=== PATIENT | male | born 1930 | race Caucasian/White ===

== ENCOUNTER 2016-02-25 23:29 | Emergency (ER) | payer MEDICARE ==
[~2016-02-25] VITALS: Ht 180.3 cm; Wt 90.9 kg
[~2016-02-25 23:29] MED LIST: ALBU0.423 IH; ALBU18HF INH; ALPRAZOLAM0.5 MG PO; CLOP75TA3 PO; METO50TA PO; MULT-64 PO; NAPR220C11 PO; NITR0.4T SL; OMEP40CA25 PO; SIMV40TA5 PO; SMV40T PO; ZES20T PO; [UNRECOGNIZED DRUG - CODE] PO
[2016-02-25 23:48] VITALS: BP 160/76; RESP 22; O2SAT 95
--- NOTE | 2016-02-25 23:48 | ED.REPORT ---
HPI-General Illness Date of Service Feb 25, 2016 ED Provider: Dr. Kirk Pt is an 86 year old male with a hx of HTN, GERD, CAD and cardiac stents presenting to the ED complaining of a mass on his left cheek just anterior to his ear onset 2 months ago. Denies fever or SOB. The pt has masses on his face which are followed by an ENT specialist and he had a needle biopsy on . The mass has since doubled in size. Nursing Notes Stated Complaint: PAINFUL LUMP ON L SIDE OF FACE Chief Complaint: ENT & Mouth Nursing Notes Reviewed: Yes Allergies: Coded Allergies: No Known Drug Allergies (Verified Allergy, Unknown, 02/25/16) Scheduled Cilostazol-Expunged Drug, Do Not Renew! (Pletal-Expunged Drug, Do Not Renew!) 100 Mg Tablet 50 MG PO BID Clopidogrel Bisulfate (Plavix) 75 Mg Tablet 75 MG PO DAILY Lisinopril-Expunged Drug, Do Not Renew! (Lisinopril-Expunged Drug, Do Not Renew! ) 20 Mg Tablet 20 MG PO DAILY for blood pressure Metoprolol Tart-Expunged Drug, Do Not Renew! (Metoprolol Tart-Expunged Drug, Do Not Renew!) 50 Mg Tablet 50 MG PO BID for heart rate and blood pressure Multivitamins-Expunged Drug, Do Not Renew! (Multivitamins-Expunged Drug, Do Not Renew!) 1 Each Tab.chew 1 EACH PO DAILY for electrolyte balance Naproxen Sodium (Aleve) 220 Mg Capsule 440 MG PO DAILY Omeprazole-Expunged Drug, Do Not Renew! (Omeprazole-Expunged Drug, Do Not Renew! ) 40 Mg Capsule.dr 20 MG PO BID for gastric reflux and indigestion Simvastatin (Simvastatin) 40 Mg Tablet 40 MG PO HS Simvastatin-Expunged Drug, Choose New Med! (Simvastatin-Expunged Drug, Choose New Med!) 40 Mg Tablet 40 MG PO DAILY for cholesterol Scheduled PRN Albuterol Sulfate (Ventolin HFA Inhaler) 200 Puff/18 Gm Inhaler 1 PUFF INH Q4 PRN PRN For Wheezing Alprazolam-Expunged Drug, Do Not Renew! (Alprazolam-Expunged Drug, Do Not Renew! ) 0.5 Mg Tablet 0.5 MG PO HS PRN PRN for insomnia Nitroglycerin-Expunged Drug, Do Not Renew! (Nitroglycerin SL-Expunged Drug, Do Not Renew!) 0.4 Mg Tab.subl 0.4 MG SL PRN PRN PRN for chest pain. Take 1 tab under tongue every 5 minutes times 3 doses for chest pain. Miscellaneous Medications Albuterol-Expunged Drug, Do Not Renew! (Albuterol-Expunged Drug, Do Not Renew!) 1.25 Mg/3 Ml Nebu 1.25 MG IH General Time Seen by MD: 23:48 Chief Complaint Other (Mass left side of face) Hx Obtained From: Patient Arrived By: Walk-in Sudden in Onset?: No Onset Occurred: More than a week ago... (2 months) Symptom Duration: Since onset Location: : Face Quality: Painful Severity: Current: Moderate Severity: Maximum: Moderate Recent Healthcare: No recent hospitalization, Recent doctor visit Similar Sx Previous: Yes Past Medical History Past Medical History Masses on face followed by ENT CAD, stents, peripheral vascular disease, chronic anemia, HTN, GERD, dyslipidemia, Cerebrovascular disease with known carotid stenosis Past Surgical History Needle biopsy of facial mass right iliac angioplasty Ambulatory Status Independent Review of Systems Full Review of Systems Constitutional: Denies: Fever Respiratory: Denies: Shortness of breath Skin: Reports Swelling Complete sys rev & neg: except as marked. Physical Exam Vital Signs Vital Signs Date Time Temp Pulse Resp B/P Pulse Ox O2 Delivery O2 Flow Rate FiO2 02/25/16 23:48 36.6 95 22 160/76 95 Room Air Initial VS: Reviewed General/Constitutional: Well-developed, Well-nourished Head / Eyes: Atraumatic, Normocephalic, PERRL ENT: Mucous membranes moist, Conjunctiva normal, No scleral icterus Cardiovascular: Regular rate & rhythm, Heart sounds normal, Intact distal pulses Abdomen / GI: Soft, Non-tender, No guarding, No rebound, No distention Extremities: Vascular intact, Neuro intact, No swelling, No tenderness Neurologic: Alert, Oriented, Nonfocal Psychiatric: Mood/affect normal, Behavior normal, Normal thought content Respiratory / Chest: No respiratory distress Wheeze right lung Skin: Warm, Dry, Intact 3 in x 3 in lump anterior to left ear Interpretation & Diagnostics Lab Results Interpretation Result Diagram: 02/26/16 0040 02/26/16 0040 Test 02/26/16 00:40 White Blood Count 8.7th/mm3 (3.8-10.1) Red Blood Count 4.79mil/mm3 (4.40-5.80) Hemoglobin 14.8g/dL (13.8-17.2) Hematocrit 45.3% (41.0-50.0) Mean Corpuscular Volume 94.6fL (81-100) Mean Corpuscular Hemoglobin 30.9pg (27.0-35.0) Mean Corpuscular Hemoglobin Concent 32.7% (32.0-37.0) Red Cell Distribution Width 14.6% (12.3-15.4) Platelet Count 160bil/L (150-400) Neutrophils (%) (Auto) 71.5% (40-74) Lymphocytes (%) (Auto) 14.8% (14-46) Monocytes (%) (Auto) 10.7% (4-12) Eosinophils (%) (Auto) 2.1% (0-5) Basophils (%) (Auto) 0.7% (0-3) Sodium Level 139mEq/L (134-144) Potassium Level 4.4mEq/L (3.5-5.2) Chloride Level 102mEq/L (97-108) Carbon Dioxide Level 24mmol/L (18-29) Blood Urea Nitrogen 17mg/dL (8-27) Creatinine 1.24mg/dL (0.76-1.27) Estimat Glomerular Filtration Rate 59mL/min (>59) Glucose Level 103mg/dL (60-99) Calcium Level 9.1mg/dL (8.5-10.1) Total Bilirubin 0.3mg/dL (0.0-1.2) Aspartate Amino Transf (AST/SGOT) 23U/L (0-50) Alanine Aminotransferase (ALT/SGPT) 12U/L (0-44) Alkaline Phosphatase 92U/L (25-160) Total Protein 7.2g/dL (6.4-8.4) Albumin 3.8g/dL (3.4-5.0) Amylase Level 42U/L (28-100) Hold [place] Top Tube Received (Received) Procedures Incision & Drainage Abscess Time: 00:53 Procedure Performed by: ED physician Consent / Setup / Site Prep: Consent from patient, Time-out performed, Hand hygiene observed, Stand sterile technique, Standard surgical scrub, Sterile drapes applied Location of Abscess: Left cheek anterior to left ear Post-Procedure / Complications: Culture obtained, Dressing applied, No complications, Condition improved, Tolerated procedure well, Patient stable Re-Eval/Medical Decision Med Decision/Clinical Course Very pleasant 86-year-old male presents with increased swelling of the left mandibular mass. The mass is been there for several months was recently biopsied at ENT clinic by Dr. mancini. Since that roughly doubled in size. On examination the mass is roughly 3" x 3" long the angle of his left mandible. There is no stridor trismus or drooling. There is no fluctuance. The mass does not seem tense and rather fixed/adherent to the bone. Mild erythema overlying the area. No oral pharyngeal involvement that I can see. Laboratory work was all reassuring. I consulted with Dr. Urban. He recommended steroids antibiotics and stent and needle aspirate. I performed a needle aspirate carefully. I avoided the area of erythema. Nothing was drained. Nothing we could culture. Mr. Petersen was medicating felt better. At discharge the pain was well-controlled. The mass is not growing in size. No signs of airway compromise. He will be discharged home. He is requesting something for pain. I will discharge him home with a Percocet take home pack as well as a prescription for clindamycin. Routine opiate warnings were given. I did warn them that the Percocet can lead to hypoventilation. I mention this because he has COPD. He states that the pain is so great that he is breathing fast anyways. He will be very careful to the Percocet and his will be there with him. They both would prefer him to have pain medication as opposed to suffer due to the degree of pain. Close follow-up recommended. Time of Eval: 00:20 Patient Status: Condition improved Re-Evaluation/Progress Note: Discussed consultation with Dr. Urban. Time of Eval: 00:53 Patient Status: Condition improved Re-Evaluation/Progress Note: Performed I&D and obtained sample. Consultation : Referral / Consult Name: Bala Urban MD Consulted With: ENT Call Returned at: 00:14 Note: Put the pt on antibiotics and IV steroids. Put a needle in the mass and see if it drains. Culture the discharge. Counseled Regarding: Diagnosis, Lab results, Need for follow-up, When/why to return to ED Discharge & Departure Primary Impression: Swelling, mass, or lump on face Disposition: Home Discharge Condition All VS Reviewed: Yes Condition: Improved Patient Instructions: Cellulitis (ED) Additional Instructions: I consulted with Dr. Bala Urban from ear nose and throat surgery. The recommendations are for oral antibiotics, pain medication and close follow-up. If the site of the biopsy continues to grow in size and feel free to come back emergent department. Otherwise follow-up with Dr. Mancini on Saturday. Call the office Saturday morning and tell them that the area that was biopsied has grown in size. Clindamycin 4 times daily. 1-2 Percocet every 6 hours as needed for pain. Do not drive or drink alcohol or consume acetaminophen while taking the Percocet. Return if any problems or any worsening symptoms. Referrals: Manny Crandall MD (PCP) Semaj Mancini MD Attestation Portions of this note were transcribed by Kaye Peraza. I, Dr. Kirk personally performed the history, physical exam and medical decision-making; I reviewed and confirmed the accuracy of the information in the transcribed note. Signed by : Karen Antunez, 02/25/2016 and 0130. copies to: Manny Crandall MD, Todd P DO Feb 25, 2016 23:48 KAYE PERAZA Feb 26, 2016 00:11
[2016-02-26] MEDS ORDERED: Albuterol-Ipratropium 3 mL Inhalation Solution NEB ONE (00:10)
[2016-02-26] MEDS ORDERED: Clindamycin Inj 900 MG in IV Premix 1 EACH IV ONE (00:20)
[2016-02-26] MEDS ORDERED: Dexamethasone 10 mg/mL Inj IVPUSH ONE (00:20)
[2016-02-26] MEDS ORDERED: Lidocaine 1%-Epi 1:100,000 50 mL Inj SUBQ ONE (00:20)
[2016-02-26] MEDS ORDERED: Lidocaine 1%-Epi 1:100,000 20 mL Inj ONE (00:36)
[2016-02-26 00:53] LABS: BASOPHILS % (AUTO) 0.7 % (0-3); EOSINOPHILS % (AUTO) 2.1 % (0-5); MONOCYTES % (AUTO) 10.7 % (4-12); Mean Corpuscular Hemoglobin 30.9 pg (27.0-35.0); Mean Corpuscular Volume 94.6 fL (81-100); NEUTROPHILS % (AUTO) 71.5 % (40-74); Platelet Count 160 bil/L (150-400)
[2016-02-26] MEDS ORDERED: _oxyCODONE/APAP 5-325 mg Tablet PO PRN (01:20)
[2016-02-26 02:17] VITALS: BP 165/90; PULSE 91; RESP 16; O2SAT 96
[2016-04-26] MEDS ORDERED: PANT40TA3 PO (14:53)
[2016-04-26] MEDS ORDERED: BISO10TA PO (14:53)
[2016-04-26] MEDS ORDERED: ALBU18HF INH (14:53)
[2016-04-26] MEDS ORDERED: NITR0.4T6 SL (14:53)
[2016-04-26] MEDS ORDERED: POTA10TA12 PO (14:53)
[2016-04-26] MEDS ORDERED: ISOS60TA2 PO (14:53)
[2016-04-26] MEDS ORDERED: CILO100T2 PO (14:53)
[2016-04-26] MEDS ORDERED: LOSA50TA37 PO (14:53)
[2016-04-26] MEDS ORDERED: ALPR0.5T8 PO (14:53)
[2016-04-26] MEDS ORDERED: FURO40TA4 PO (14:53)
[2016-04-26] MEDS ORDERED: IRON150C6 PO (14:53)
[2016-04-26] MEDS ORDERED: MULT-1073 PO (14:53)
[2016-04-26] MEDS ORDERED: LIP40 PO (14:53)
[2016-04-26] MEDS ORDERED: GLUC-210 PO (14:53)
== END 2016-02-26 01:58 | disposition home or self-care (01) ==
LOC: SED 23:29
DX: R22.0 Localized swelling, mass and lump, head (principal); I10 Essential (primary) hypertension; K21.9 Gastro-esophageal reflux disease without esophagitis; I25.10 Atherosclerotic heart disease of native coronary artery without angina pectoris; E78.5 Hyperlipidemia, unspecified; I73.9 Peripheral vascular disease, unspecified; Z95.818 Presence of other cardiac implants and grafts; Z79.02 Long term (current) use of antithrombotics/antiplatelets
CPT/HCPCS: 10060; 36415; 80053; 82150; 85025; 96365; 96372; 96375; 99285; J1100

== ENCOUNTER 2016-07-06 01:36 | Inpatient (IN) | payer MEDICARE ==
[2016-07-06] VITALS (16 sets, daily range): BP systolic 123–171; BP diastolic 62–79; PULSE 72–111; RESP 20–29; O2SAT 91–97
[~2016-07-06] VITALS: Ht 180.3 cm; Wt 92.6 kg
[~2016-07-06 01:36] MED LIST changes: -ALBU0.423 IH; +ALPR0.5T8 PO; -ALPRAZOLAM0.5 MG PO; +BISO10TA PO; +CILO100T2 PO; -CLOP75TA3 PO; +FURO40TA4 PO; +GLUC-210 PO; +IRON150C6 PO; +ISOS60TA2 PO; +LIP40 PO; +LOSA50TA37 PO; -METO50TA PO; +MULT-1073 PO; -MULT-64 PO; -NAPR220C11 PO; -NITR0.4T SL; +NITR0.4T6 SL; -OMEP40CA25 PO; +PANT40TA3 PO; +POTA10TA12 PO; -SIMV40TA5 PO; -SMV40T PO; -ZES20T PO; -[UNRECOGNIZED DRUG - CODE] PO
[2016-07-06] MEDS ORDERED: 0.9% Sodium Chloride 1,000 ML IV ONE (01:52)
--- NOTE | 2016-07-06 01:52 | ED.REPORT ---
HPI-Dyspnea / Wheezing Date of Service July 06, 2016 ED Provider: Frankie Kirk DO 86-year-old male with a history of COPD presents via EMS for respiratory distress. He has had a cough and shortness of breath for 24-36 hours. He is found to be tachypneic and hypoxic with a saturation of 80% on room air. He is not on home oxygen. He received DuoNeb en route to the hospital he feels somewhat better. He has not been recently hospitalized however he has had recent surgical procedures. He denies having any chest pain. No history of pulmonary artery embolism. Nursing Notes Stated Complaint: DIFFICULTY BREATHING Chief Complaint: Respiratory Complaints Nursing Notes Reviewed: Yes Allergies: Coded Allergies: codeine (Verified Allergy, Unknown, rash, 04/26/16) lisinopril (Verified Allergy, Unknown, angioedema, 04/26/16) Uncoded Allergies: CLOPIDROGEL (Allergy, Unknown, rash, 04/26/16) pt takes anyway Scheduled Atorvastatin (Lipitor) 40 Mg Tablet 40 MG PO DAILY Bisoprolol Fumarate (Bisoprolol Fumarate) 10 Mg Tablet 10 MG PO DAILY Cilostazol (Cilostazol) 100 Mg Tablet 100 MG PO BID Furosemide (Furosemide) 40 Mg Tablet 40 MG PO DAILY Glucosam/Chond/Hyalu/Cf Borate (Move Free Joint Health Tablet) 750 Mg-100 Mg- 1.65 Mg-108 Mg Tablet 1 EACH PO DAILY Iron Polysaccharides Complex (Ferrex 150) 150 Mg Capsule 150 MG PO DAILY Isosorbide MN ER (Isosorbide MN ER) 60 Mg Tab.er.24h 60 MG PO DAILY Losartan Potassium (Losartan Potassium) 50 Mg Tablet 50 MG PO DAILY Multivits-Min/FA/Lycopene/Lut (Centrum Silver Tablet) 1 Each Tablet 1 EACH PO DAILY Pantoprazole DR (Pantoprazole DR) 40 Mg Tablet.dr 40 MG PO DAILY Potassium Chloride ER (Potassium Chloride ER) 10 Meq Tablet 10 MEQ PO DAILY TAKE WITH FOOD Scheduled PRN Albuterol Sulfate (Ventolin HFA Inhaler) 200 Puff/18 Gm Inhaler 2 PUFF INH Q4 PRN PRN For Wheezing Alprazolam (Alprazolam) 0.5 Mg Tablet 0.5 MG PO TID PRN PRN For Anxiety Nitroglycerin SL (Nitroglycerin SL) 0.4 Mg Tab.subl 0.4 MG SL PRN For Chest Pain General Time Seen by MD: 01:51 Chief Complaint Cough, Shortness of breath Hx Obtained From: Patient Arrived By: Ambulance Sudden in Onset?: Yes Onset Occurred: 5 - 8 hours ago Associated with: Reports: Cough, Denies: Vomiting Recent Healthcare: No recent hospitalization, Recent doctor visit Similar Sx Previous: Yes Past Medical History Past Medical History Masses on face followed by ENT COPD sleep apnea [place] stents peripheral vascular disease chronic anemia GERD, dyslipidemia, Cerebrovascular disease with known carotid stenosis Reports: Coronary artery disease, Hypertension Past Surgical History Needle biopsy of facial mass right iliac angioplasty Smoking History Current Every Day Smoker Social History Other Social History: Good social support, , Local resident Ambulatory Status Independent Review of Systems Constitutional: Denies: Fever Respiratory: Reports: Dyspnea on exertion, Non-productive cough, Shortness of breath, Wheezing Cardiovascular: Denies: Chest pain Musculoskeletal: Denies: Back pain Complete sys rev & neg: except as marked. GI: Denies: Abdominal pain, Diarrhea, Vomiting Neurologic: Denies: Dizziness, Numbness, Weakness Physical Exam Initial Vital Signs Vital Signs (First) Date Time Temp Pulse Resp B/P Pulse Ox O2 Delivery O2 Flow Rate FiO2 07/06/16 01:43 36.8 89 20 140/63 93 Room Air Initial VS: Reviewed General/Constitutional: Awake, Alert Distress / Hydration: Positive: Distress moderate Neck: Atraumatic, Supple, Full range of motion RESPIRATORY: diffuse expiratory wheezes diffuse coarse breath sounds slighlty tachypneic Cardiovascular: Heart rate NL, Regular rhythm, Heart sounds NL Abdomen: Atraumatic, Soft, Non-tender Skin: Atraumatic, Color NL, No rash, Warm, Dry Neurologic: Oriented X3, Speech NL, No motor deficits, No sensory deficits Head / Eyes: Atraumatic, Normocephalic, PERRL, EOMI Psychiatric: Affect NL, Mood NL Interpretation & Diagnostics Lab Results Interpretation Result Diagram: 07/06/16 0205 Test 07/06/16 01:39 07/06/16 02:05 Hold Purple Top Tube Received (Received) Hold Blue Top Tube Received (Received) Hold Red Top Tube Received (Received) Hold [place] Top Tube Received (Received) White Blood Count 3.9th/mm3 (3.8-10.1) Red Blood Count 4.21mil/mm3 (4.40-5.80) Hemoglobin 13.1g/dL (13.8-17.2) Hematocrit 40.6% (41.0-50.0) Mean Corpuscular Volume 96.4fL (81-100) Mean Corpuscular Hemoglobin 31.1pg (27.0-35.0) Mean Corpuscular Hemoglobin Concent 32.3% (32.0-37.0) Red Cell Distribution Width 15.0% (12.3-15.4) Platelet Count 137bil/L (150-400) Neutrophils (%) (Auto) 62.6% (40-74) Lymphocytes (%) (Auto) 19.6% (14-46) Monocytes (%) (Auto) 14.3% (4-12) Eosinophils (%) (Auto) 2.0% (0-5) Basophils (%) (Auto) 1.5% (0-3) Pulse Oximetry Interpretation Pulse Oximetry: Pulse Ox low (90% on room air) ECG Interpretation ECG Interpretation: Sinus rhythm with LVH with strain patters No STEMI or ST depression Time: 01:42 Interpreted by: ED physician Normal ECG Interpretation: Normal rate (91) Rhythm Strip Interpretation : Time: 02:46 Rhythm Strip Interpretation: Interpreted by me, Rate (91 sinus) CBC Interpretation CBC normal X-Ray Chest Interpretation Chest Xray Interpretation: Emphysematous changes in the left lobe, indicative of pneumonia View: Portable, 1 view Interpretation / Wet Read by: Wet read ED physician X-Ray Interpretation Xray Interpretation: left basilar infiltrate, copd Re-Eval/Medical Decision Med Decision/Clinical Course 86-year-old male presents with moderate respiratory distress. He has a mix of COPD and pneumonia. I am just concerned for a left basilar infiltrate on the x- ray. He has coarse breath sounds with wheezes throughout. He was reportedly hypoxic pretreatment. His saturation now is roughly 90-92%. Were going to treat him with IV steroids, IV antibiotics, bronchodilators and oxygen. Plan for PCU admission. 02:41 Mr. Lechuga feels much better. He is moving more air. Still coughing and his sat is 90%. O2 ordered. Source of Hx: Old records, EMS, Family Re-Evaluation/Progress : Time of Eval: 02:11 Re-Evaluation/Progress Note: Discussed plan for admit. The patient understands and agrees to the plan for admit. All questions were addressed. Consultation : Referral / Consult Name: Rory Shane MD Consulted With: Hospitalist Teacher Associate: Agrees with eval (will follow up on remainder of labs as well as admit.), Agrees with plan, Accepts admit Differential Diagnosis: Positive: Acute coronary syndrome, Airway obstruction, COPD exacerbation, Pneumonia, Negative: Pulmonary embolism (Seems unlikely: no pain, no hemoptysis and bilateral bronchospasm on exam. No history of PE or DVT.) Severity: Serious condition Comorbidities: COPD Counseled Regarding: Diagnosis, Lab results, Need for admission Discharge & Departure Impression: Primary Impression: COPD exacerbation Additional Impressions: Hypoxia Pneumonia Pneumonia type: due to unspecified organism Laterality: left Lung location : lower lobe of lung Qualified Code: J18.1 - Lobar pneumonia, unspecified organism Disposition: ADMITTED TO HOSPITAL Discharge Condition All VS Reviewed: Yes Condition: Stable Referrals: Manny Carndall MD (PCP) Karen Attestation Portions of this note were transcribed by Nano Chu. I, Dr. Kirk personally performed the history, physical exam and medical decision-making; I reviewed and confirmed the accuracy of the information in the transcribed note. Signed by: Karen Hugo, 07/06/16 and 0230 copies to: Manny Crandall MD, Todd P DO July 06, 2016 01:52 Alejandrina Chu July 06, 2016 02:01
[2016-07-06] MEDS ORDERED: MethylprednisoLONE Sodium Succinate 62.5 mg/mL 2 mL Inj IVPUSH ONE (01:55)
[2016-07-06] MEDS ORDERED: Albuterol 2.5 mg/3 mL Inhalation Solution NEB ONE (01:55)
[2016-07-06] MEDS ORDERED: Albuterol-Ipratropium 3 mL Inhalation Solution NEB ONE (01:55)
[2016-07-06] MEDS ORDERED: Piperacillin-Tazo 3.375 Gm Inj 3.375 GM in Dextrose 5% Minibag Plus 50 ML IV ONE (02:05)
[2016-07-06 02:22] LABS: BASOPHILS % (AUTO) 1.5 % (0-3); MONOCYTES % (AUTO) 14.3 % (4-12); Mean Corpuscular Hemoglobin 31.1 pg (27.0-35.0); Mean Corpuscular Volume 96.4 fL (81-100); NEUTROPHILS % (AUTO) 62.6 % (40-74); Platelet Count 137 bil/L (150-400)
[2016-07-06] MEDS ORDERED: Lidocaine 2% 6mL Topical Jelly TOPICAL ONE (02:45)
[2016-07-06] MEDS ORDERED: Alum-Mag Hydrox-Simeth 30 mL Suspension PO PRN (02:50)
[2016-07-06] MEDS ORDERED: Albuterol 2.5 mg/3 mL Inhalation Solution NEB PRN (02:50)
[2016-07-06] MEDS ORDERED: Polyethylene Glycol (PEG) 17 Gm Powder PO PRN (02:50)
[2016-07-06 03:00] LABS: INR 1.02 ratio
--- NOTE | 2016-07-06 03:12 | PCM.HPMED ---
Subjective Date of Service July 06, 2016 Primary Provider: Admitting Physician: Primary Care Physician: Manny Crandall MD Attending Physician: Chief Complaint: Shortness of breath. History of Present Illness: Mr. Ryan Lechuga is a very pleasant 86-year-old gentleman with a long history of recurrent COPD exacerbations, tobacco use disorder and chronic cardiac ischemia, presented to the [facility] emergency Department by way of EMS for severe shortness of breath. EMS reports he was found to be tachypneic and hypoxic with a saturation of 80% on room air. He is not on home oxygen. He reports feeling ill for 1 day then last night 07/05/2016 around 10 PM after he had gone to bed and taken his nightly inhaler patient stated that he could not catch his breath. He denies fevers, chills, chest pain, syncope, headache, nausea, vomiting, abdominal pain, change in bowel or bladder function. He reports a chronic nonproductive cough and recent sick contacts, 2 weeks of bronchitis. In the emergency department upon admission patient's temperature was 36.8, pulse 89, respiratory rate 20, blood pressure 140/63, pulse ox 93% on room air. His white count is 3.9, hemoglobin 13.1, platelets 137, monocytes 14.3. Lactic acid 0.9, troponin 0.012, proBNP 16,000, pro-calcitonin 0.07, other CMP values pending. PT/INR 10.9/1.02. Blood cultures 2 pending, sputum culture ordered, influenza screen rapid negative. In the emergency department patient received DuoNeb treatment, methylprednisone 125 mg injection, IV Zosyn, nicotine patch He received DuoNeb en route to the hospital he feels somewhat better. He has not been recently hospitalized however he has had recent surgical procedures ( surgical removal of cyst below left ear ). He denies having any chest pain. No history of pulmonary artery embolism. And states that he currently feels much better than it at home. Review of Systems: Pertinent positives as noted in HPI. All other systems were reviewed and are negative Allergies Coded Allergies: codeine (Verified Allergy, Unknown, rash, 04/26/16) lisinopril (Verified Allergy, Unknown, angioedema, 04/26/16) Uncoded Allergies: CLOPIDROGEL (Allergy, Unknown, rash, 04/26/16) pt takes anyway Home Medications r Ventolin HFA every 4-6 hours as needed for wheezing Alprazolam 0.5 mg at bedtime as needed Lipitor 40 mg nightly Bisoprolol fumarate 10 mg every day Cilostazol 100 mg 2 times every day half hour before or 2 hours after breakfast Clopidogrel 75 mg daily Furosemide 40 mg 2 tablets per day Ferrex 150 forte plus Isosorbide mononitrate ER 60 mg tablet in the morning Losartan 50 mg daily Centrum Silver Sublingual nitroglycerin 0.4 for chest pain Pantoprazole 40 mg daily Potassium chloride 10 mEq ER 2 tablets daily PMH Masses on face followed by ENT COPD sleep apnea [place] stents peripheral vascular disease chronic anemia GERD, dyslipidemia, Cerebrovascular disease with known carotid stenosis Reports: Coronary artery disease, Hypertension Surgical History Needle biopsy of facial mass right iliac angioplasty Family History Patient states he does not know his mother, father or grandparents health history. Social History Hx Alcohol Use: No Hx Substance Use: Yes Hx Tobacco Use: Yes (1 PACK A DAY) Smoking Status: Current Every Day Smoker Exam Vital Signs Vital Sign - Last Date Time Temp Pulse Resp B/P Pulse Ox O2 Delivery O2 Flow Rate FiO2 07/06/16 02:54 36.7 72 20 123/62 94 Nasal Cannula 2 Intake and Output 07/05/16 07/05/16 07/06/16 Cumulative From/Thru 15:00 23:00 07:00 07/06/16 01:43 - 07/06/16 02:21 Intake Total 1050 ml 1050 ml Balance 1050 ml 1050 ml Intake IV Total 1050 ml 1050 ml Exam General: Elderly gentleman lying in bed in mild acute distress. well-developed, well-nourished, appropriately interactive HEENT: Normocephalic, atraumatic. External ears without defect. Pupils equal, round, and reactive to light and accommodation. Anicteric sclerae, moist conjunctivae, and no lid lag. Oropharynx free of erythema and cobble stoning with moist mucosa. Neck: Supple with full range of motion. No jugular venous distension. No bruits. No lymphadenopathy or thyromegaly. Cardiovascular: Regular rate and rhythm with no murmurs, rubs, or gallops appreciated Pulmonary: Moderate rhonchi diffusely and bilaterally present, mild to moderate wheezes diffusely. Abnormal respiratory effort with moderate use of accessory muscles. Abdomen: Bowel tones present. Soft, obese, nontender, nondistended. No hepatosplenomegaly or masses appreciated. Extremities: No clubbing, cyanosis, edema, or lymphadenopathy appreciated. Skin: Normal temperature, turgor, and texture; no rash, ulcers, or subcutaneous nodules appreciated. Neurological: Cranial nerves grossly intact. Normal muscle strength, tone, and bulk. Reflexes, coordination, and sensory function within normal limits. Walks with a cane if he is out of his house. Psychiatric: Normal mood and affect. Alert and oriented to person, place, and time. Lab and Diagnostics Result Diagram: 07/06/16 0205 X-Rays, CTs and MRIs Chest x-ray Emphysematous changes in the left lobe, indicative of pneumonia. Wet read, awaiting official read. Assessment & Plan Mr. Ryan Lechuga is a very pleasant 86-year-old gentleman with a long history of recurrent COPD exacerbations, tobacco use disorder and chronic cardiac ischemia, presented to the [facility] emergency Department by way of EMS for severe shortness of breath. EMS reports he was found to be tachypneic and hypoxic with a saturation of 80% on room air. He is not on home oxygen. He reports feeling ill for 1 day then last night 07/05/2016 around 10 PM after he had gone to bed and taken his nightly inhaler patient stated that he could not catch his breath. He denies fevers, chills, chest pain, syncope, headache, nausea, vomiting, abdominal pain, change in bowel or bladder function. He reports a chronic nonproductive cough and recent sick contacts, 2 weeks of bronchitis. 1. Acute Hypoxic Respiratory failure present on admission. Active. - Differential includes:COPD exacerbation versus viral/bacterial pneumonia. - Chest x-ray as above. - Blood cultures 2 pending, rapid influenza negative, - Sputum culture ordered. - Viral respiratory PCR ordered. - Strep pneumo/Legionella urine antigen ordered. - Pro calcitonin pending. - Patient received Zosyn in the ED. Awaiting Procalcitonin before continuing antibiotics. - Received 125 IV Solu-Medrol in the ED. Ordered 40 mg by mouth prednisone daily for 5 days. - DuoNeb's scheduled every 4, albuterol every 2 when necessary. - 02 NC to keep sats above 92%. - Tessalon Perles for cough when necessary. 2. Acute COPD exacerbation, present on admission. Active. - Treatment as above. 3. Chronic heart failure with reduced ejection fraction, present on admission. Active. - Recent Echo 02/17/2016 showed EF of 30-35% with significant decrease since 2009 down from 50-55%. - Chest x-ray as above. - Consider repeat echo. - Also may consider cardiology consult. - Continue home Lasix 80 mg daily. - Continue home losartan 50 mg daily. - Continue home bisoprolol 10 mg daily. - Continue potassium chloride 10 mEq daily. 4. Chronic tobacco use disorder, present on admission. Active. - Patient has smoked one pack a day "since he was young." - Nicotine patch when necessary. Chronic ischemic heart disease, present on admission. Active. - Continue isosorbide mononitrate ER 60 mg a.m. - Continue nitroglycerin sublingual 0.4 when necessary chest pain. - Continue clopidogrel 75 mg daily. - Continue home Lipitor 40 mg daily. Chronic essential Hypertension, present on admission. Stable. - Continue home antihypertensive as above. Chronic Iron deficiency anemia, present on admission. Active. - Continue home Ferrex 150 daily. - Chronic Peripheral vascular disease, present on admission. Active. - Continue home Cilostazol 100 mg daily. History of Chronic angina pectoris History of carotid stenosis bilaterally Acetaminophen for mild pain when necessary. Bowel regimen Senna and MiraLAX scheduled and PRN. Zofran when necessary for nausea and vomiting. SubQ heparin held for now. SCDs in place. Disposition: Patient to be admitted under inpatient status. Likely here greater than 2 midnights. Discharge dependent upon respiratory status. Discharge home when medically stable. Pain Evaluation: Adequate Pain Control Resuscitation Status: CPR: Attempt Resuscitation Attending Statement The patient was seen and examined together with Dr. Sorenson on 07/06 and I agree with the history, exam and plan as outlined in the note above. RAZA SORENSON DO July 06, 2016 03:01 Rory Shane MD July 06, 2016 04:30
[2016-07-06 03:32] LABS: TROPONIN T 0.012 ug/L (0.0-0.011)
[2016-07-06 04:26] LABS: APPEARANCE,URINE CLEAR (CLEAR,HAZY); COLOR,URINE YELLOW (YELLOW); OCCULT BLOOD,URINE NEGATIVE (NEGATIVE); PH,URINE 5.5 (5.0-8.0); UROBILINOGEN,URINE NORMAL (NORMAL)
--- NOTE | 2016-07-06 04:42 | NUR ---
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 pt able to void also sent UA, pt on 2L NC very wheezy LS audible just standing in the room, called RT for prashant tx, assisting with admit questions, tele SR with many PVCs, pt denies any pain, is a 1pack a day smoker, nicotine patch on left shoulder, taking belongings home except slippers and glasses. she states she will bring in his dentures tomorrow. orientated pt to call light, room and bed. Addendum: 07/06/16 at 0609 by SCOTT LANDERS RN pt is now NPO
[2016-07-06] MEDS: Albuterol 2.5 mg/3 mL Inhalation Solution NEB SCH ×5 (05:11→20:07)
[2016-07-06] MEDS: predniSONE 20 mg Tablet PO SCH (08:00)
[2016-07-06] MEDS: Pantoprazole 40 mg ER24 Tablet PO SCH (08:01)
[2016-07-06] MEDS: Isosorbide Mononitrate 60 mg ER24 Tablet PO SCH (08:01)
[2016-07-06] MEDS ORDERED: predniSONE 20 mg Tablet PO SCH (08:30)
--- NOTE | 2016-07-06 08:46 | DRSVH ---
PROCEDURE: X-RAY CHEST ONE VIEW, PORTABLE ([id number]) INDICATIONS: dyspnea TECHNIQUE: One view of the chest was acquired. COMPARISON: [facility], CR, XR CHEST 2VW, 01/27/2016, 11:12. FINDINGS: Surgical changes and devices: None. Lungs and pleura: No pleural effusions or pneumothorax. Chronic interstitial disease. . Mediastinum: Mediastinal contours appear normal. Heart size is normal. Bones and chest wall: No suspicious bony lesions. Overlying soft tissues appear unremarkable. IMPRESSION: No acute disease. Stable interstitial changes. Dictated by: Wisam Toledo M.D. on 07/06/2016 at 8:42 Approved by: Wisam Toledo M.D. on 07/06/2016 at 8:45
--- NOTE | 2016-07-06 08:55 | NUR ---
Social Work: Initial Assessment D: Per EMR review, pt is an 86 year old male admitted for Acute COPD Exacerbation, R/O Hypoxia. Pt is [employer] with no LTC insurance or VA Benefits. PCP is Manny Crandall MD. NOK/DPOA is Vashti Lechuga, , . AD completed and on file. No RA score entered at this time. [employer] B[employer]ER [employer]PER met with pt at bedside. Sw role explained and contact info provided. See initial assessment. Pt lives in a mobile home with his . Pt has 2 steps to enter and uses a cane for ambulation. Pt does not drive. Pt states that he has not been able to tolerate standing or long distance ambulation for several years. Pt reports no falls to [employer]. Pt has never had HH or Skilled Rehab. Pt is receptive to a PT evaluation for recommendations. [employer]PER discussed possible discharge services including Home Health and Skilled Rehab. HH/SNF CHOICE LIST PROVIDED. Pt is reviewing and will think about these options during his stay but states that he wishes to go home. A: Pt who lives at home with his and reports unsteady gait and balance during daily ambulation. P: Evolving; [employer] to request ambulation with RN and possible PT evaluation to determine pt's discharge needs. [employer] to continue to follow. AALIYAH Lerma Addendum: 07/06/16 at 0901 by BERNARDO PAYAN SS Amended: Links added.
--- NOTE | 2016-07-06 15:07 | PCM.PNMED ---
Subjective Date of Service July 06, 2016 Subjective Mr. Ryan Lechuga is a very pleasant 86-year-old gentleman with a long history of recurrent COPD exacerbations, tobacco use disorder and chronic cardiac ischemia, presented to the [facility] emergency Department by way of EMS for severe shortness of breath. Now under treatment for COPD exacerbation secondary to parainfluenza 3 virus. Hospital day #1 The patient states his breathing is much better this morning and is almost back to his normal. He denies any cough, fevers or chills. He would like to go home as soon as possible. The remainder of the review of systems is negative except as noted above. Exam Vital Signs Vital Sign - Last Date Time Temp Pulse Resp B/P Pulse Ox O2 Delivery O2 Flow Rate FiO2 07/06/16 12:47 92 24 95 Nasal Cannula 2.00 07/06/16 12:33 37.1 159/71 Intake and Output 07/05/16 07/05/16 07/06/16 Cumulative From/Thru 15:00 23:00 07:00 07/06/16 01:43 - 07/06/16 04:03 Intake Total 1050 ml 1050 ml Balance 1050 ml 1050 ml Intake IV Total 1050 ml 1050 ml Exam General: Elderly gentleman lying in bed in no acute distress. well-developed, well-nourished, appropriately interactive HEENT: Normocephalic, atraumatic. External ears without defect. Pupils equal, round, and reactive to light and accommodation. Anicteric sclerae, moist conjunctivae, and no lid lag. Oropharynx free of erythema and cobble stoning with moist mucosa. Neck: Supple with full range of motion. No jugular venous distension. No bruits. No lymphadenopathy or thyromegaly. Cardiovascular: Regular rate and rhythm with no murmurs, rubs, or gallops appreciated Pulmonary: Reduced breath sounds diffusely but clear to auscultation. Abnormal respiratory effort with moderate use of accessory muscles. Abdomen: Bowel tones present. Soft, obese, nontender, nondistended. No hepatosplenomegaly or masses appreciated. Extremities: No clubbing, cyanosis, edema, or lymphadenopathy appreciated. Skin: Normal temperature, turgor, and texture; no rash, ulcers, or subcutaneous nodules appreciated. Neurological: Cranial nerves grossly intact. Normal muscle strength, tone, and bulk. Reflexes, coordination, and sensory function within normal limits. Walks with a cane if he is out of his house. Psychiatric: Normal mood and affect. Alert and oriented to person, place, and time. IVs and Medications Medications Reviewed: Medications were reviewed in detail Lab and Diagnostics Result Diagram: 07/06/1620407/06/16204 X-Rays, CTs and MRIs X-RAY CHEST ONE VIEW, PORTABLE IMPRESSION: No acute disease. Stable interstitial changes. Dictated by: Wisam Toledo M.D. on 07/06/2016 at 8:42 Assessment & Plan Mr. Ryan Lechuga is a very pleasant 86-year-old gentleman with a long history of recurrent COPD exacerbations, tobacco use disorder and chronic cardiac ischemia, presented to the [facility] emergency Department by way of EMS for severe shortness of breath. Now under treatment for COPD exacerbation secondary to parainfluenza 3 virus. Hospital day #1 Acute Hypoxic Respiratory failure secondary to COPD exacerbation due to parainfluenza 3, present on admission. Active. Improving. - Blood cultures 2 pending, Sputum culture pending, Strep pneumo/Legionella urine antigen negative, Procalcitonin negative - Received 125 IV Solu-Medrol in the ED. Ordered 40 mg by mouth prednisone daily for 5 days. - DuoNeb's scheduled every 4, albuterol every 2 when necessary. - supplemental O2, keep sats 88-92%. - Tessalon Perles for cough when necessary - Will hold off on antibiotics Chronic heart failure with reduced ejection fraction, present on admission. Active. - Recent Echo 02/17/2016 showed EF of 30-35% with significant decrease since 2009 down from 50-55%. - Consider repeat echo. - Continue home Lasix 80 mg daily, losartan 50 mg daily, bisoprolol 10 mg daily , potassium chloride 10 mEq daily. Chronic tobacco use disorder, present on admission. Active. - Patient has smoked one pack a day "since he was young." - Nicotine patch when necessary. Chronic ischemic heart disease, present on admission. Active. - Continue isosorbide mononitrate ER 60 mg a.m, nitroglycerin sublingual 0.4 when necessary chest pain, clopidogrel 75 mg daily, Lipitor 40 mg daily. Chronic essential Hypertension, present on admission. Stable. - Continue home antihypertensive as above. Chronic Iron deficiency anemia, present on admission. Active. - Continue home Ferrex 150 daily. Chronic Peripheral vascular disease, present on admission. Active. - Continue home Cilostazol 100 mg daily. History of Chronic angina pectoris History of carotid stenosis bilaterally Acetaminophen for mild pain when necessary. Bowel regimen Senna and MiraLAX scheduled and PRN. Zofran when necessary for nausea and vomiting. Disposition: Anticipate patient can be discharged tomorrow. VTE Prophylaxis: Sub-Q Heparin (Unfractionated) Resuscitation Status: CPR: Attempt Resuscitation Time spent 25 minutes Attending Statement I have seen and evaluated patient at bedside in addition to directly supervising care provided by resident physician. I agree with above documentation. Maria R Goodrich DO July 06, 2016 14:44 Augustus Livingston DO July 06, 2016 15:57
--- NOTE | 2016-07-06 17:38 | NUR ---
Chest pain pt report episode of chest discomfort this afternoon. EKG obtained. pain resolved on its own prior to nitro availability. MD informed. will continue to monitor.
[2016-07-06] MEDS: Heparin 5,000 Unit/mL Inj SUBQ SCH (17:47)
--- NOTE | 2016-07-06 22:00 | NUR ---
Chest Pain Patient call light on at [phone] to ask for "a nitro pill." Admits "pretty bad" chest pain. Vital signs obtained, NTG given x1. RT to bedside for stat EKG. Sinus tach with multiform PVCs, IVCD. Hospitalist paged.
[2016-07-07] VITALS (16 sets, daily range): BP systolic 115–197; BP diastolic 59–101; PULSE 100–127; RESP 20–28; O2SAT 93–98
--- NOTE | 2016-07-07 00:28 | NUR ---
Dyspnea/Chest Pain Call from [facility] reporting patient's heart rate sustaining in the 120-130s, up from 100-110s. Checked on patient to find increased respiratory rate and audible wheezes from across the room. Patient had removed oxygen. Replaced oxygen and increased flow rate to 4L. Call to RT for breathing treatment. Patient states 3/10 left sided chest pain. BP 197/101. NTG given x1. Patient reported improvement in pain to "almost gone."
[2016-07-07] MEDS: Albuterol 2.5 mg/3 mL Inhalation Solution NEB SCH ×6 (00:35→21:06)
[2016-07-07] MEDS: Heparin 5,000 Unit/mL Inj SUBQ SCH ×3 (01:05→16:30)
[2016-07-07 03:34] LABS: BASOPHILS % (AUTO) 0.3 % (0-3); EOSINOPHILS % (AUTO) 0 % (0-5); MONOCYTES % (AUTO) 10.5 % (4-12); Mean Corpuscular Hemoglobin 30.5 pg (27.0-35.0); Mean Corpuscular Volume 95.6 fL (81-100); NEUTROPHILS % (AUTO) 80.3 % (40-74); Platelet Count 139 bil/L (150-400)
[2016-07-07] MEDS: predniSONE 20 mg Tablet PO SCH (09:11)
[2016-07-07] MEDS: Isosorbide Mononitrate 60 mg ER24 Tablet PO SCH (09:11)
[2016-07-07] MEDS: Pantoprazole 40 mg ER24 Tablet PO SCH (09:12)
--- NOTE | 2016-07-07 15:53 | PCM.PNMED ---
Subjective Date of Service July 07, 2016 Subjective Pt stable overnight, but continues to demonstrate significant supplemental oxygen requirements to maintain adequate saturations. He is still short of breath, worsening with ambulation. He is anxious to return home due to illness of , but also admits he is not at his baselines, and would have difficult time getting around his home. Denies sweats or chills however. No chest pain in spite of shortness of breath. Denies palpitations as well. No significant cough. Neb treatments have been effective for SOB symptoms. Exam Vital Signs Vital Sign - Last Date Time Temp Pulse Resp B/P Pulse Ox O2 Delivery O2 Flow Rate FiO2 07/07/16 13:08 36.6 24 153/86 96 Nasal Cannula 2.50 07/07/16 13:00 110 Intake and Output 07/06/16 07/06/16 07/07/16 Cumulative From/Thru 15:00 23:00 07:00 07/06/16 01:43 - 07/07/16 06:35 Intake Total 500 ml 400 ml 1950 ml Output Total 800 ml 300 ml 1100 ml Balance -300 ml 100 ml 850 ml Intake Oral 500 ml 400 ml 900 ml IV Total 1050 ml Output Urine Total 800 ml 300 ml 1100 ml # Bowel Movements 1 1 General: Alert, Oriented X3, Cooperative, Moderate Distress Mouth: Mucous Membr Moist/[place] Chest & Lungs: Coarse breath sounds, Expiratory wheezes, Other (However adequate airflow in all lung aden. No dullness to percussion. ) Cardiovascular: Other Extremities: No cyanosis/clubbing/edma bilat Neurological: Grossly Neurologically Intact IVs and Medications Medications Reviewed: Medications were reviewed in detail Lab and Diagnostics Result Diagram: 07/07/16 0322 07/07/16 0322 X-Rays, CTs and MRIs X-RAY CHEST ONE VIEW, PORTABLE IMPRESSION: No acute disease. Stable interstitial changes. Dictated by: Wisam Toledo M.D. on 07/06/2016 at 8:42 Assessment & Plan Mr. Ryan Lechuga is a very pleasant 86-year-old gentleman with a long history of recurrent COPD exacerbations, tobacco use disorder and chronic cardiac ischemia, presented to the [facility] emergency Department by way of EMS for severe shortness of breath. Now under treatment for COPD exacerbation secondary to parainfluenza 3 virus. Hospital day #2 Acute Hypoxic Respiratory failure secondary to COPD exacerbation due to parainfluenza 3, present on admission. Active. Stable / Slowly improving. - Blood cultures 2 pending, Sputum culture pending, Strep pneumo/Legionella urine antigen negative, Procalcitonin negative - Received 125 IV Solu-Medrol in the ED, now transitioned to oral prednisone 40 mg by mouth prednisone daily for 5 days. - DuoNeb's scheduled every 4, albuterol every 2 when necessary. - Supplemental O2, Keep Sats 88-92%. Pt is NOT on supplement oxygen at home, but has been difficult to wean through hospitalization, still demonstrating significant oxygen demands overnight into today. - Tessalon Perles for cough when necessary - Will hold off on antibiotics at this time, continue to monitor closely. Chronic heart failure with reduced ejection fraction, present on admission. Active. - Recent Echo 02/17/2016 showed EF of 30-35% with significant decrease since 2009 down from 50-55%. - Consider repeat echo. - Continue home Lasix 80 mg daily (Pt. refused yesterday but restarted today), Losartan 50 mg daily, Bisoprolol 10 mg daily, Potassium Chloride 10 mEq daily. Chronic tobacco use disorder, present on admission. Active. - Patient has smoked one pack a day "since he was young", no desire to quit at this time in spite of counselling. - Nicotine patch when necessary. Chronic ischemic heart disease, present on admission. Active. - Continue isosorbide mononitrate ER 60 mg a.m, nitroglycerin sublingual 0.4 when necessary chest pain, clopidogrel 75 mg daily, Lipitor 40 mg daily. Chronic essential Hypertension, present on admission. Stable. - Continue home antihypertensive as above. Chronic Iron deficiency anemia, present on admission. Active. - Continue home Ferrex 150 daily. Chronic Peripheral vascular disease, present on admission. Active. - Continue home Cilostazol 100 mg daily. History of Chronic angina pectoris History of carotid stenosis bilaterally Acetaminophen for mild pain when necessary. Bowel regimen Senna and MiraLAX scheduled and PRN. Zofran when necessary for nausea and vomiting. Disposition: Considering DC in 1-2 days with decreasing oxygen requirements. Pain Evaluation: Adequate Pain Control VTE Prophylaxis: Sub-Q Heparin (Unfractionated) Resuscitation Status: CPR: Attempt Resuscitation Auugstus Livingston DO July 07, 2016 15:53
--- NOTE | 2016-07-07 16:12 | NUR ---
Output Pt refuses to use the urinal in the bathroom. Educated on why its important but still not wanting to do it. Will make MD aware when he checks back in with the pt.
[2016-07-08] VITALS (8 sets, daily range): BP systolic 134–144; BP diastolic 71–85; PULSE 101–111; RESP 20–22; O2SAT 95–96
[2016-07-08] MEDS: Albuterol 2.5 mg/3 mL Inhalation Solution NEB SCH ×3 (00:15→08:36)
[2016-07-08] MEDS: Heparin 5,000 Unit/mL Inj SUBQ SCH ×2 (01:27→08:31)
[2016-07-08 04:10] LABS: EOSINOPHILS % (AUTO) 0 % (0-5); MONOCYTES % (AUTO) 10.5 % (4-12); Mean Corpuscular Hemoglobin 30.7 pg (27.0-35.0); NEUTROPHILS % (AUTO) 76.8 % (40-74); Platelet Count 151 bil/L (150-400)
[2016-07-08 04:11] LABS: BASOPHILS % (AUTO) 0.2 % (0-3)
--- NOTE | 2016-07-08 05:35 | NUR ---
Output/Respiratory Patient continues to refuse to use the urinal for voiding. Respiratory: on 2L O2 via nasal cannula overnight, audible wheezes from across the room when active. Maintaining SpO2 in the low to mid 90s. Reports feeling better than yesterday.
[2016-07-08] MEDS: predniSONE 20 mg Tablet PO SCH (08:30)
[2016-07-08] MEDS: Pantoprazole 40 mg ER24 Tablet PO SCH (08:30)
[2016-07-08] MEDS: Isosorbide Mononitrate 60 mg ER24 Tablet PO SCH (08:35)
--- NOTE | 2016-07-08 09:10 | NUR ---
PT. UP TO USE RESTROOM. WHEN SITTING AT EDGE OF BED AFTER ACTIVITY. SATS 88-91. Addendum: 07/08/16 at 0917 by ADRIAN BIRCH [facility] ROOM AIR SATS 88-91
[2016-07-08] MEDS ORDERED: Levalbuterol 0.63 mg/3 mL Inhalation Solution NEB PRN (11:45)
--- NOTE | 2016-07-08 11:59 | NUR ---
[facility] Signed
--- NOTE | 2016-07-08 11:59 | NUR ---
Social Work: Readiness for Discharge D: Pt discussed in am rounds. Pt may be ready for discharge today pending clinical presentation. MD will update BOOTH MANAGER. BOOTH MANAGER met with pt and at bedside to discuss discharge plan and assess for unmet needs. Pt and both state that they are eager for pt to discharge home and identify no sw needs. Pt has been ambulating I during admission and feels stable on his feet. BOOTH MANAGER verified this in EMR and no further sw needs identified at this time. Pt's will transport home when ready. A: Pt who is I at baseline. P: Anticipate pt to discharge home via POV once medically stable; BOOTH MANAGER to continue to follow. AALIYAH Lerma
--- NOTE | 2016-07-08 12:49 | PCM.DC.MED ---
Discharge Summary Date of Service July 08, 2016 Dates of Hospitalization Date of Hospital Admission July 06, 2016 at 03:25 Date of Discharge: July 08, 2016 Providers: Admitting Physician: Rory Shane MD Primary Care Physician: Manny Crandall MD Attending Physician: Rory Shane MD Diagnosis at Time of Discharge Diagnosis at Time of Discharge 1. Parainfluenza 3 virus 2. COPD Exacerbation 3. Tachycardia, exertional Procedures XRay, CTs & MRIs X-RAY CHEST ONE VIEW, PORTABLE IMPRESSION: No acute disease. Stable interstitial changes. Dictated by: Wisam Toledo M.D. on 07/06/2016 at 8:42 Brief History As per HPI by admitting physician, "Mr. Ryan Lechuga is a very pleasant 86- year-old gentleman with a long history of recurrent COPD exacerbations, tobacco use disorder and chronic cardiac ischemia, presented to the [facility] emergency Department by way of EMS for severe shortness of breath. EMS reports he was found to be tachypneic and hypoxic with a saturation of 80% on room air. He is not on home oxygen. He reports feeling ill for 1 day then last night 07/05/2016 around 10 PM after he had gone to bed and taken his nightly inhaler patient stated that he could not catch his breath. He denies fevers, chills, chest pain, syncope, headache, nausea, vomiting, abdominal pain, change in bowel or bladder function. He reports a chronic nonproductive cough and recent sick contacts, 2 weeks of bronchitis. In the emergency department upon admission patient's temperature was 36.8, pulse 89, respiratory rate 20, blood pressure 140/63, pulse ox 93% on room air. His white count is 3.9, hemoglobin 13.1, platelets 137, monocytes 14.3. Lactic acid 0.9, troponin 0.012, proBNP 16,000, pro-calcitonin 0.07, other CMP values pending. PT/INR 10.9/1.02. Blood cultures 2 pending, sputum culture ordered, influenza screen rapid negative. In the emergency department patient received DuoNeb treatment, methylprednisone 125 mg injection, IV Zosyn, nicotine patch He received DuoNeb en route to the hospital he feels somewhat better. He has not been recently hospitalized however he has had recent surgical procedures ( surgical removal of cyst below left ear ). He denies having any chest pain. No history of pulmonary artery embolism. And states that he currently feels much better than it at home." Hospital Course Acute Hypoxic Respiratory failure secondary to COPD exacerbation due to parainfluenza 3, present on admission. Active. Stable / Slowly improving. Hospital course as follow: - Blood cultures 2 pending, Sputum culture pending, Strep pneumo/Legionella urine antigen negative, Procalcitonin negative as such antibiotic therapy was not initiated. - Received 125 IV Solu-Medrol in the ED, now transitioned to oral prednisone 40 mg by mouth prednisone daily for 5 days, currently on day 2/5 on day of discharge. - DuoNeb's scheduled every 4, albuterol every 2 when necessary, transitioned to home albuterol on discharge. - Supplemental O2 required earlier in hospitalization with goal of keep saturations around 88-92%. Pt is NOT on supplement oxygen at home, and had returned to baseline by discharge. He did continue to demonstrate tachycardia with exertion. Chronic heart failure with reduced ejection fraction, present on admission. Active. - Recent Echo 02/17/2016 showed EF of 30-35% with significant decrease since 2009 down from 50-55%. - Continued home Lasix 80 mg daily. Pt. did refuse dose on day #1 of hospitalization which seemed to lead to a decline in repsiratory function, however with restarting to began to make more rapid progress returning to respiratory baseline. Home medications of Losartan 50 mg daily, Bisoprolol 10 mg daily, Potassium Chloride 10 mEq daily were also continued - Pt was encouraged to remain in hospital for further evaluation of heart condition in the setting of persistent tachycardia with exertion, however he adamantly declined this possibility stating he would rather return home and pursue work up in out patient setting. Chronic tobacco use disorder, present on admission. Active. - Patient has smoked one pack a day "since he was young", no desire to quit at this time in spite of counselling. Chronic ischemic heart disease, present on admission. Active. - Continue isosorbide mononitrate ER 60 mg a.m, nitroglycerin sublingual 0.4 when necessary chest pain, clopidogrel 75 mg daily, Lipitor 40 mg daily. Exam Vital Signs (Last) Date Time Temp Pulse Resp B/P Pulse Ox O2 Delivery O2 Flow Rate FiO2 07/08/16 08:30 103 22 95 Nasal Cannula 2.00 5/21/17 08:14 37.1 144/85 Exam General: Alert, Oriented X3, Cooperative, Moderate Distress Mouth: Mucous Membranes Moist/[place] Chest & Lungs: Coarse breath sounds, improving but still present are diffuse expiratory wheezes, However adequate airflow in all lung aden. No dullness to percussion. Cardiovascular: Regular rhythm with boarderline rate in 100's during my examination. Extremities: No cyanosis/clubbing/edema bilat Neurological: Grossly Neurologically Intact Test 07/06/16 01:39 07/06/16 02:05 07/06/16 03:53 07/08/16 03:47 Hold Purple Top Tube Received (Received) Hold Blue Top Tube Received (Received) Hemoglobin A1c 5.2% (4.8-5.6) Hold Red Top Tube Received (Received) Hold [place] Top Tube Received (Received) Prothrombin Time 10.9sec (8.1-12.5) Prothromb Time International Ratio 1.02ratio Lactic Acid Level 0.9mmol/L (0.4-2.0) Magnesium Level 1.6mg/dL (1.6-2.6) Total Bilirubin 0.4mg/dL (0.0-1.2) Aspartate Amino Transf (AST/SGOT) 29U/L (0-50) Alanine Aminotransferase (ALT/SGPT) 16U/L (0-44) Alkaline Phosphatase 87U/L (25-160) Troponin T 0.012ug/L (0.0-0.011) Pro-B-Type Natriuretic Peptide 93637at/mL (0-486) Total Protein 6.4g/dL (6.4-8.4) Albumin 3.5g/dL (3.4-5.0) Procalcitonin 0.07ng/mL (0.00-0.08) Urine Color Yellow (YELLOW) Urine Appearance Clear (CLEAR,HAZY) Urine pH 5.5 (5.0-8.0) Urine Specific [place] 1.020 (1.003-1.035) Urine Protein 30mg/dL (NEG,TRACE) Urine Glucose (UA) Negativemg/dL (NEGATIVE) Urine Ketones Negativemg/dL (NEGATIVE) Urine Occult Blood Negative (NEGATIVE) Urine Nitrite Negative (NEGATIVE) Urine Bilirubin Negative (NEGATIVE) Urine Urobilinogen Normalmg/dL (NORMAL) Urine Leukocyte Esterase Negative (NEGATIVE) Urine RBC 0-2/hpf (0-2) Urine WBC 0-5/hpf (0-5) Urine Epithelial Cells Few/hpf (NONE-MOD) Urine Crystals None seen (NONE SEEN) Urine Bacteria Few/hpf (NONE-FEW) Urine Hyaline Casts None/lpf (NONE) Urine Granular Casts None seen (NONE SEEN) Urine Waxy Casts None seen (NONE SEEN) Urine Red Blood Cell Casts None seen (NONE SEEN) Urine White Blood Cell Casts None seen (NONE SEEN) Urine Mucus Present (None Seen) Urine Trichomonas None seen (NONE SEEN) Urine Yeast None (NONE SEEN) Urinalysis Comment None Urine Culture Reflexed Not indicated Urine Legionella pneumophilia Ag Negative (Negative) White Blood Count 8.8th/mm3 (3.8-10.1) Red Blood Count 3.98mil/mm3 (4.40-5.80) Hemoglobin 12.2g/dL (13.8-17.2) Hematocrit 38.2% (41.0-50.0) Mean Corpuscular Volume 96.0fL (81-100) Mean Corpuscular Hemoglobin 30.7pg (27.0-35.0) Mean Corpuscular Hemoglobin Concent 31.9% (32.0-37.0) Red Cell Distribution Width 15.0% (12.3-15.4) Platelet Count 151bil/L (150-400) Neutrophils (%) (Auto) 76.8% (40-74) Lymphocytes (%) (Auto) 12.2% (14-46) Monocytes (%) (Auto) 10.5% (4-12) Eosinophils (%) (Auto) 0% (0-5) Basophils (%) (Auto) 0.2% (0-3) Sodium Level 143mEq/L (134-144) Potassium Level 3.8mEq/L (3.5-5.2) Chloride Level 106mEq/L (97-108) Carbon Dioxide Level 24mmol/L (18-29) Blood Urea Nitrogen 26mg/dL (8-27) Creatinine 1.39mg/dL (0.76-1.27) Estimat Glomerular Filtration Rate 51mL/min (>59) Glucose Level 113mg/dL (60-99) Calcium Level 9.0mg/dL (8.5-10.1) Discharge Medications Discharge Medications Atorvastatin (Lipitor) 40 Mg Tablet 40 MG PO DAILY (Reported) Bisoprolol Fumarate (Bisoprolol Fumarate) 10 Mg Tablet 10 MG PO DAILY (Reported ) Cilostazol (Cilostazol) 100 Mg Tablet 100 MG PO BID (Reported) Furosemide (Furosemide) 40 Mg Tablet 40 MG PO DAILY (Reported) Glucosam/Chond/Hyalu/Cf Borate (Move Free Joint Health Tablet) 750 Mg-100 Mg- 1.65 Mg-108 Mg Tablet 1 EACH PO DAILY (Reported) Iron Polysaccharides Complex (Ferrex 150) 150 Mg Capsule 150 MG PO DAILY ( Reported) Isosorbide MN ER (Isosorbide MN ER) 60 Mg Tab.er.24h 60 MG PO DAILY (Reported) Losartan Potassium (Losartan Potassium) 50 Mg Tablet 50 MG PO DAILY (Reported) Multivits-Min/FA/Lycopene/Lut (Centrum Silver Tablet) 1 Each Tablet 1 EACH PO DAILY (Reported) Pantoprazole DR (Pantoprazole DR) 40 Mg Tablet.dr 40 MG PO DAILY (Reported) Potassium Chloride ER (Potassium Chloride ER) 10 Meq Tablet 10 MEQ PO DAILY ( Reported) TAKE WITH FOOD As needed Albuterol Sulfate (Ventolin HFA Inhaler) 200 Puff/18 Gm Inhaler 2 PUFF INH Q4 PRN PRN For Wheezing (Reported) Alprazolam (Alprazolam) 0.5 Mg Tablet 0.5 MG PO TID PRN PRN For Anxiety ( Reported) Nitroglycerin SL (Nitroglycerin SL) 0.4 Mg Tab.subl 0.4 MG SL PRN For Chest Pain (Reported) Followup Plan Disposition: Home with Follow-up plan FU with PCP within 1 week for further evaluation of cardiac and respiratory function Currently FU visit with Tool Profiling Machine Set Up Operator, Dr Ludwig is scheduled in a few months, suggested perhaps moving this visit closer due to persistent tachycardia with exertion noted during hospital stay. They can be considered further with primary care physician. Discharge Diet: No restrictions, Heart Healthy Discharge Activity: Limited until seen by PCP Follow-up with PCP in: 1 week Time spent 55 minutes copies to: Manny Crandall MD, Benjamin P DO July 08, 2016 12:49
[2016-07-08] MEDS ORDERED: PRED-508 PO (12:51)
--- NOTE | 2016-07-08 12:56 | PCM.DIMED ---
Discharge Instructions Date of Service July 08, 2016 Dates of Hospitalization July 06, 2016 at 03:25 Discharge Diagnosis Discharge Diagnosis 1. Parainfluenza 3 virus 2. COPD Exacerbation 3. Tachycardia, exertional Diet No restrictions, Heart Healthy Activity Limited until seen by PCP Patient Instructions Follow-up plan FU with PCP within 1 week for further evaluation of cardiac and respiratory function Currently FU visit with Blade Operator, Dr Ludwig is scheduled in a few months, suggested perhaps moving this visit closer due to persistent tachycardia with exertion noted during hospital stay. They can be considered further with primary care physician. Follow-up with PCP in: 1 week Augustus Livingston DO July 08, 2016 12:55
--- NOTE | 2016-07-08 14:04 | NUR ---
Discharge Patient maintaining SPO2 in the low-mid 90s on RA. Tele SR-ST in the 90s-100s at rest with spikes in the 140-160s with activity. Patient declining further testing/interventions to address increased heart rate and requesting to discharge today. CHF education and medication teaching done with patient and , emphasizing importance of lasix, diet and daily weights. All questions answered. Patient left unit via wc with all personal belongings accompanied by his . Patient discharged home via personal vehicle.
== END 2016-07-08 13:30 | disposition home or self-care (01) | DRG 190 ==
LOC: SED 01:36 → EDBD 01:36 → PCC 03:25 → SED 03:25
PROVIDERS: ADMIT Hospitalist; ATTEND Hospitalist
DX: J44.0 Chronic obstructive pulmonary disease with (acute) lower respiratory infection (principal); J96.01 Acute respiratory failure with hypoxia; J12.2 Parainfluenza virus pneumonia; F17.210 Nicotine dependence, cigarettes, uncomplicated; I25.9 Chronic ischemic heart disease, unspecified; I10 Essential (primary) hypertension; I25.10 Atherosclerotic heart disease of native coronary artery without angina pectoris; D50.9 Iron deficiency anemia, unspecified; I73.9 Peripheral vascular disease, unspecified; J44.1 Chronic obstructive pulmonary disease with (acute) exacerbation